=== PATIENT | male | born 1940 | race Two or more races ===

== ENCOUNTER → 2016-07-15 | Outpatient (CLI) | payer MEDICARE, OTHER | END | disposition home or self-care (01) | LOC: RADPV 08:51 | PROVIDERS: ATTEND Internal Medicine | DX: J98.11 Atelectasis (principal); I70.0 Atherosclerosis of aorta | CPT/HCPCS: 71020 ==

== ENCOUNTER → 2016-07-23 | Outpatient (CLI) | payer MEDICARE, OTHER | END | disposition home or self-care (01) | LOC: RADMN 12:39 | PROVIDERS: ATTEND Internal Medicine | DX: J43.2 Centrilobular emphysema (principal); J42 Unspecified chronic bronchitis; R91.8 Other nonspecific abnormal finding of lung field; I70.0 Atherosclerosis of aorta; I25.10 Atherosclerotic heart disease of native coronary artery without angina pectoris; M47.894 Other spondylosis, thoracic region; Z87.891 Personal history of nicotine dependence | CPT/HCPCS: 71250 ==

== ENCOUNTER → 2017-01-17 | Outpatient (CLI) | payer MEDICARE, OTHER | END | disposition home or self-care (01) | LOC: RADMN 12:33 | PROVIDERS: ATTEND Internal Medicine | DX: G31.89 Other specified degenerative diseases of nervous system (principal); I67.2 Cerebral atherosclerosis; G93.89 Other specified disorders of brain; J43.8 Other emphysema; R91.8 Other nonspecific abnormal finding of lung field; I70.0 Atherosclerosis of aorta; R90.82 White matter disease, unspecified; J32.8 Other chronic sinusitis; Z87.891 Personal history of nicotine dependence | CPT/HCPCS: 70450; 71250 ==

== ENCOUNTER 2017-09-22 12:22 | Emergency (ER) | payer MEDICARE, OTHER ==
[~2017-09-22] VITALS: Ht 165.1 cm; Wt 68.2 kg
[2017-09-22] MEDS ORDERED: UBID30CA11 PO (12:27)
[2017-09-22] MEDS ORDERED: ASPI81 PO (12:27)
[2017-09-22] MEDS ORDERED: ALBU8HFA IH (12:27)
[2017-09-22] MEDS ORDERED: ATOR10TA84 PO (12:27)
[2017-09-22] MEDS ORDERED: TAMS0.4C32 PO (12:27)
[2017-09-22] MEDS ORDERED: OMEG-135 PO (12:27)
[2017-09-22] MEDS ORDERED: FINA5TAB41 PO (12:27)
[2017-09-22 12:58] VITALS: BP 135/84
[2017-09-22] MEDS ORDERED: PROPARACAINE/FLUORESCEIN SOD 0.5-0.25% 0.5 ML OPHTHALMIC SOLUTION OD ONE (13:00)
== END 2017-09-22 14:18 | disposition home or self-care (01) ==
LOC: EMS 12:22
DX: B02.9 Zoster without complications (principal); R03.0 Elevated blood-pressure reading, without diagnosis of hypertension; Z79.82 Long term (current) use of aspirin
CPT/HCPCS: 99283

== ENCOUNTER → 2018-12-23 | Outpatient (CLI) | payer MEDICARE, OTHER ==
[~2018-12-23] MED LIST: ALBU8HFA IH; ASPI81 PO; ATOR10TA84 PO; FINA5TAB41 PO; OMEG-135 PO; TAMS-13 PO; UBID30CA11 PO
== END | disposition home or self-care (01) ==
LOC: RADPV 07:34
PROVIDERS: ATTEND Internal Medicine
DX: R91.1 Solitary pulmonary nodule (principal); Z87.891 Personal history of nicotine dependence
CPT/HCPCS: 71250

== ENCOUNTER 2021-09-25 09:47 | Emergency (ER) | payer MEDICARE, OTHER ==
[~2021-09-25] VITALS: Ht 170.2 cm; Wt 72.7 kg
[~2021-09-25 09:47] MED LIST changes: +ASPI-1450 PO; -ASPI81 PO; +FINA-27 PO; -FINA5TAB41 PO
[2021-09-25] MEDS ORDERED: LIDOCAINE 1%/EPI 1:200,000/PF 30 ML VIAL SQ ONE (12:15)
[2021-09-25] MEDS ORDERED: BACITRACIN 28 GM OINTMENT TP ONE (12:15)
[2021-09-25] MEDS ORDERED: ACETAMINOPHEN 500 MG TABLET PO ONE (12:15)
[2021-09-25 13:52] VITALS: BP 138/78
[2021-09-25 13:57] LABS: BASOPHILS % (AUTO) 0.6 % (0.0-2.0); EOSINOPHILS % (AUTO) 1.4 % (1.0-6.0); HEMOGLOBIN 14.1 g/dL (13.5-17.5); LYMPHOCYTES # (AUTO) 1.4 K/uL (1.0-4.8); LYMPHOCYTES % (AUTO) 11.5 % (22.0-44.0); MEAN CORPUSCULAR HEMOGLOBIN 30.5 pg (26.0-34.0); MEAN CORPUSCULAR HGB CONC 34.3 G/dL (31.0-37.0); MEAN CORPUSCULAR VOLUME 89 fL (80-100); MONOCYTES # (AUTO) 0.6 K/uL (0.1-1.0); NEUTROPHILS # (AUTO) 9.8 K/uL (1.8-7.7); NEUTROPHILS % (AUTO) 81.5 % (40.0-70.0); PLATELET COUNT (AUTO) 288 K/uL (150-450); RED BLOOD CELL COUNT(AUTO) 4.61 MIL/uL (4.50-5.90); RED CELL DISTRIBUTION WIDTH 14.2 % (11.5-14.5)
[2021-09-25 14:14] LABS: CREATININE 1.21 mg/dL (0.60-1.30); POTASSIUM 4.5 mmol/L (3.5-5.1)
[2021-09-25 14:16] LABS: PROTHROMBIN TIME 10.8 SEC (9.4-11.6)
[2021-09-25 14:35] LABS: COVID AG,FIA SOURCE NASAL SWAB
[2021-09-25 14:36] LABS: BILIRUBIN,TOTAL 0.6 mg/dL (0.1-1.0)
[2021-09-25 14:37] LABS: ALBUMIN 3.8 g/dL (3.4-5.0); TOTAL PROTEIN, SERUM 7.6 g/dL (6.4-8.2)
== END 2021-09-25 15:24 | disposition short-term general hospital (02) ==
LOC: EMS 09:47
DX: S06.5X0A Traumatic subdural hemorrhage without loss of consciousness, initial encounter (principal); S01.112A Laceration without foreign body of left eyelid and periocular area, initial encounter; D46.4 Refractory anemia, unspecified; N40.0 Benign prostatic hyperplasia without lower urinary tract symptoms; E78.5 Hyperlipidemia, unspecified; Z20.822 Contact with and (suspected) exposure to COVID-19; W01.198A Fall on same level from slipping, tripping and stumbling with subsequent striking against other object, initial encounter; Y93.89 Activity, other specified; Y92.89 Other specified places as the place of occurrence of the external cause; Y99.8 Other external cause status
CPT/HCPCS: 99285; 70450; 87426; 80053; 85025; 85610; 85730; 36415; 72125; J3490

== ENCOUNTER 2022-04-14 04:09 | Emergency (ER) | payer MEDICARE, OTHER ==
[~2022-04-14] VITALS: Ht 162.6 cm; Wt 65.9 kg
[~2022-04-14 04:09] MED LIST changes: -ALBU8HFA IH; -ASPI-1450 PO; +ATOR10TA PO; -ATOR10TA84 PO; -OMEG-135 PO
[2022-04-14] MEDS ORDERED: NYST30OI6 TP (06:41)
[2022-04-14 06:52] LABS: APPEARANCE,URINE HAZY (CLEAR); BILIRUBIN,URINE NEGATIVE (NEGATIVE); GLUCOSE, URINE (UA) NEGATIVE (NEGATIVE); KETONES,URINE NEGATIVE (NEGATIVE); LEUKOCYTE ESTERASE ,URINE SMALL (NEGATIVE); NITRATE,URINE NEGATIVE (NEGATIVE); OCCULT BLOOD,URINE LARGE (NEGATIVE); PH,URINE 5.5 (5.0-8.0); PROTEIN,URINE 30-70 mg/dL (NEGATIVE); SPECIFIC GRAVITIY, URINE 1.022 (1.003-1.030); UROBILINOGEN,URINE <=1.0 mg/dL (<=1.0)
[2022-04-14] MEDS ORDERED: SULF1TAB42 PO (06:52)
[2022-04-14] MEDS ORDERED: IBUP-1506 PO (06:54)
[2022-04-14 07:11] LABS: BACTERIA,URINE None Seen /HPF (None Seen); RBC,URINE 26-50 /HPF (0-2); SQUAMOUS EPITHELIAL CELL,UR Few /LPF (None Seen); URIC ACID CRYSTALS,URINE Few /LPF (None Seen)
[2022-04-14 07:39] VITALS: BP 133/87
[2022-04-15] MEDS ORDERED: GABA-1216 PO (23:45)
[2022-04-15] MEDS ORDERED: CARB-49 PO (23:45)
== END 2022-04-14 07:41 | disposition home or self-care (01) ==
LOC: EMS 04:10
DX: N48.1 Balanitis (principal); F03.90 Unspecified dementia, unspecified severity, without behavioral disturbance, psychotic disturbance, mood disturbance, and anxiety; N40.0 Benign prostatic hyperplasia without lower urinary tract symptoms; B02.9 Zoster without complications; Z98.890 Other specified postprocedural states
CPT/HCPCS: 81001; 99283

== ENCOUNTER 2022-04-15 23:32 | Emergency (ER) | payer MEDICARE, OTHER ==
[~2022-04-15] VITALS: Ht 167.6 cm; Wt 68.2 kg
[~2022-04-15 23:32] MED LIST changes: +IBUP-1506 PO; +NYST30OI6 TP; +SULF1TAB42 PO
[2022-04-15 23:40] VITALS: BP 134/78
[2022-04-15] MEDS ORDERED: CARB-49 PO (23:45)
[2022-04-15] MEDS ORDERED: GABA-1216 PO (23:45)
[2022-04-16 01:32] LABS: APPEARANCE,URINE CLEAR (CLEAR); BILIRUBIN,URINE NEGATIVE (NEGATIVE); GLUCOSE, URINE (UA) NEGATIVE (NEGATIVE); KETONES,URINE NEGATIVE (NEGATIVE); LEUKOCYTE ESTERASE ,URINE MODERATE (NEGATIVE); NITRATE,URINE NEGATIVE (NEGATIVE); OCCULT BLOOD,URINE LARGE (NEGATIVE); PH,URINE 5.5 (5.0-8.0); PROTEIN,URINE 30-70 mg/dL (NEGATIVE); SPECIFIC GRAVITIY, URINE 1.019 (1.003-1.030); UROBILINOGEN,URINE <=1.0 mg/dL (<=1.0)
[2022-04-16 01:49] LABS: BACTERIA,URINE Rare /HPF (None Seen)
[2022-04-16 01:50] LABS: SQUAMOUS EPITHELIAL CELL,UR None Seen /LPF (None Seen)
== END 2022-04-16 02:29 | disposition home or self-care (01) ==
LOC: EMS 23:33
DX: K94.23 Gastrostomy malfunction (principal); N39.0 Urinary tract infection, site not specified; I63.9 Cerebral infarction, unspecified; F03.90 Unspecified dementia, unspecified severity, without behavioral disturbance, psychotic disturbance, mood disturbance, and anxiety; J98.4 Other disorders of lung
CPT/HCPCS: 51702; 81001; 87086; 87186; 99284; Z7502